=== PATIENT | female | born 1950 | race Caucasian/White ===

== ENCOUNTER 2021-05-15 11:16 | Outpatient (CLI) | payer MEDICARE, SELFPAY ==
--- NOTE | 2021-05-15 12:52 | ECG_ITS ---
Measurements Intervals Carey Rate: 73 P: 9 NH: 191 QRS: 0 QRSD: 116 T: 50 QT: 390 QTc: 431 Interpretive Statements SINUS RHYTHM INCOMPLETE RIGHT BUNDLE BRANCH BLOCK DELAYED PRECORDIAL R/S TRANSITION CONSIDER INFERIOR INFARCT, AGE INDETERMINATE BORDERLINE ST-T WAVE ABNORMALITY- ANT/HIGH LAT LEADS ABNORMAL ECG Electronically Signed On 05-15-2021 14:34:23 CDT by Curry Ortiz D.O.
[2021-05-15 13:26] LABS: Add Urine Microscopic? NO; Appearance Urine Clear (Clear); Bilirubin Urine Negative (Negative); Blood Urine Negative (Negative); Color Urine Yellow (Yellow); Glucose Urine UA Negative (Negative); Ketones Urine Negative (Negative); Leukocyte Esterase Ur Negative LEU/UL (Negative); Nitrate Urine Negative (Negative); Protein Urine Negative (Negative); Specific Grav Ur 1.013 (1.001-1.035); Urobilinogen Urine Negative mg/dL (<2.0)
[2021-05-15 13:32] LABS: INR 0.9; Prothrombin Time 12.5 Seconds (11.1-14.7)
[2021-05-15 13:33] LABS: Partial Thromboplastin Time 25.6 SECONDS (22.3-36.8)
[2021-05-15 13:39] LABS: Urine Cotinine NEGATIVE
== END 2021-05-15 11:17 | disposition home or self-care (01) ==
PROVIDERS: PCP Pediatrics; Visit Provider Orthopaedic Surgery
DX: M16.12 Unilateral primary osteoarthritis, left hip (principal); Z01.818 Encounter for other preprocedural examination; I45.10 Unspecified right bundle-branch block
CPT/HCPCS: 80307; 81003; 85610; 85730; 86850; 86900; 86901; 87081; 93005

== ENCOUNTER 2021-05-24 19:26 | Observation (INO) | payer MEDICARE, SELFPAY ==
[2021-05-15 11:48] VITALS: BMI 33.7
[2021-05-15 12:53] VITALS: BP 153/70; PULSE 80; RESP 16; TEMP 37.2; O2SAT 97
[2021-05-23] VITALS (13 sets, daily range): BP systolic 140–192; BP diastolic 8–95; PULSE 77–95; RESP 14–20; TEMP 36.1–36.6; O2SAT 94–100
--- NOTE | 2021-05-23 08:02 | WPDANESEPPF ---
Anes - Initial Pre Proc Eval Procedure: Operation Date: 05/23/21 12:00 Proposed Procedures p Left Total Hip Arthroplasty - Froylan Velez MD Date/Time: 05/23/21 08:02 Surgeon: Froylan Velez MD Pre Op Diagnosis: left hip DJD Patient Data Age: 71 Gender: F Height: 1.65 m Weight: 91.8 kg Last Vital Signs Temp 37.2 C 05/15/21 12:53 Pulse 80 05/15/21 12:53 Resp 16 05/15/21 12:53 BP 153/70 H 05/15/21 12:53 Pulse Ox 97 05/15/21 12:53 Allergies Allergy/AdvReac Type Severity Reaction Status Date / Time [id number] Reductase AdvReac Muscle Pain Verified 05/23/21 11:23 Inhibitor Home Medications Medication Instructions Recorded Confirmed Type amlodipine 5 mg tablet 5 mg PO HS 12/13/20 05/15/21 History aspirin 81 mg tablet,delayed 81 mg PO DAILY 12/13/20 05/15/21 History release buspirone 30 mg tablet 30 mg PO BID 12/13/20 05/15/21 History fenofibrate 160 mg tablet 160 mg PO DAILY 12/13/20 05/15/21 History fluticasone propionate 50 2 spray INTRANASAL DAILY 12/13/20 05/15/21 History mcg/actuation nasal spray,suspension hydrochlorothiazide 25 mg tablet 25 mg PO DAILY 12/13/20 05/15/21 History insulin glargine 100 unit/mL (3 12 unit SUBCUT QPM 12/13/20 05/15/21 History mL) subcutaneous pen levothyroxine 112 mcg capsule 112 mcg PO DAILY 12/13/20 05/15/21 History liraglutide 0.6 mg/0.1 mL (18 mg/3 1.2 mg SUBCUT DAILY 12/13/20 05/15/21 History mL) subcutaneous pen injector olmesartan 40 mg tablet 40 mg PO DAILY 12/13/20 05/15/21 History paroxetine HCl 40 mg tablet 40 mg PO DAILY 12/13/20 05/15/21 History ropinirole 2 mg tablet 2 mg PO TID 12/13/20 05/15/21 History sitagliptin 50 mg-metformin 1,000 1 tablet PO BID 12/13/20 05/15/21 History mg tablet trazodone 100 mg tablet 200 mg PO QHS PRN tablet 12/13/20 05/15/21 History naproxen 500 mg tablet 500 mg PO PRN PRN 03/02/21 05/15/21 History chlorhexidine gluconate 4 % 1 applic TOPICAL ONCE #237 ml 03/15/21 05/15/21 Rx topical liquid tramadol 50 mg tablet 50 mg PO Q6H PRN 05/10/21 05/15/21 History cetirizine [Zyrtec] 10 mg PO DAILY 05/15/21 05/15/21 History ipratropium bromide 2 spray INTRANASAL DAILY 05/15/21 05/15/21 History simethicone [Gas Relief Extra 125 mg PO BID 05/15/21 05/15/21 History Strength] Patient hx anesthesia problems: none Family hx anesthesia problems: none Results Review: All pre-operative results and documents have been reviewed as part of the pre-operative evaluation. COUNTS INCLUDE 234 BEDS AT THE [facility] Past Medical History Medical History (Updated 05/23/21 @ 08:03 by Lamont Liu DO) Diabetes Last A1C updated 01/28/20: 7.1 DVT (deep venous thrombosis) Excessive thirst Fatty liver GERD (gastroesophageal reflux disease) Hoarseness Hyperlipidemia Hypertension Hyperthyroidism PONV (postoperative nausea and vomiting) Right shoulder pain Sleep apnea Surgical History Surgical History (Updated 05/23/21 @ 08:03 by Lamont Liu DO) History of total knee replacement Family History Family History Other Diabetes mellitus Family history of cardiovascular disease Family history of malignant neoplasm Hypertension Social History Social History Additional smoking assessment comments: DENIES ANY FORM OF TOBACCO USE Alcohol intake: current Alcohol use details: Occasional Substance use: never Living arrangements: with family Gender identity (if verbalized by the patient): Female Spiritual care concerns: No Anes - Eval Final PreProcedure Day of Procedure 05/23/21 08:02 Patient weight: obese Heart: regular rate and rhythm Lungs: clear to auscultation and normal air movement Airway: Mallampati scale class II Neurological: alert and oriented Last oral intake: >/= 8 hours ASA classification: III Emergent: no Anesthetic plan: proceed Anesthesia type and monitoring: ge
[2021-05-23] MEDS: TRANEXAMIC ACID 1,000MG/ISO100 1,000 MG/100 ML BAG 200 MG IVPB (10:30)
[2021-05-23] MEDS: LACTATED RINGERS 1,000 ML 30 ML IV CONT ×2 (10:30→15:39)
[2021-05-23] MEDS: ACETAMINOPHEN 500 MG TABLET 1000 MG PO (10:30)
[2021-05-23 11:15] LABS: Glucose Point of Care 127 mg/dl (65-105)
[2021-05-23] MEDS: fentaNYL CITRATE INJ (*CRX) 100 MCG/2 ML VIAL 50 MCG IV PUSH (11:16)
[2021-05-23] MEDS: ceFAZolin 2 GM/D5W 50 ML 2 GM/50 ML BAG IVPB ×2 (12:44→20:08)
[2021-05-23] MEDS: TRANEXAMIC ACID 1,000 MG/10 ML AMPUL 1000 MG IV PUSH (14:49)
[2021-05-23] MEDS: fentaNYL CITRATE INJ (*CRX) 100 MCG/2 ML VIAL 25 MCG IV PUSH ×5 (15:51→17:16)
[2021-05-23 16:08] LABS: Glucose Point of Care 167 mg/dl (65-105)
--- NOTE | 2021-05-23 16:24 | W.PM.PROC2 ---
Procedure Note - Detailed Date of Procedure 05/23/21 Pre-op Diagnosis left hip DJD Post-op Diagnosis same Procedure Performed [facility] Surgeon Froylan Velez MD Anesthesia general Description of Procedure THE PATIENT WAS TAKEN TO THE OPERATING ROOM IN STABLE CONDITION AND WAS PLACED IN THE LATERAL DECUBITUS AND THE LEFT LOWER EXTREMITY WAS PREPPED AND DRAPED IN THE STERILE FASHION. INCISION WAS MADE IN THE POSTERIOR LATERAL SIDE OF THE HIP, DOWN TO THE FASCIA LAYER. THE FASCIA WAS INCISED. THE HIP WAS EXPOSED. THE SHORT EXTERNAL ROTATORS WERE EXPOSED. THE SCIATIC NERVE WAS IDENTIFIED. INCISION WAS MADE THROUGH THE SHORT EXTERNAL ROTATORS AND THE CAPSULE OF THE HIP JOINT. THE HIP WAS DISLOCATED. AN OSTEOTOMY WAS MADE TO THE FEMORAL NECK ABOUT 1 CM PROXIMAL TO THE LESSER TROCHANTER. THE ACETABULUM WAS EXPOSED. THERE WAS SEVERE DJD SEEN. BEGINNING WITH A 44 REAMER THE ACETABULUM WAS REAMED TO 49 MM. A 50 MM TRIAL WAS PLACED IN 35 DEG OF ABDUCTION AND ANTEVERSION WAS IN ALIGNMENT WITH THE TRANS ACETABULAR LIGAMENT. THE FIT WAS EXCELLENT. THE TRIAL WAS REMOVED. A 50 MM BIOMET G7 COMPONENT WAS THEN TAPPED IN TO PLACE IN 35 DEG OF ABDUCTION AND ANTEVERSION IN ALIGNMENT WITH THE TRANSVERSE ACETABULAR LIGAMENT. THE FIT WAS EXCELLENT. THE ACETABULAR LINER WAS PLACED AND CHECKED FOR STABILITY. NEXT THE FEMUR WAS PREPARED WITH INITIAL CANAL FINDER THEN SEQUENTIAL BROACHING WITH A TAPERLOC HIP SYSTEM, UNTIL A 9 BROACH FIT WELL IN 15 OF ANTEVERSION. A -3 HIGH OFFSET NECK WITH 36 MM HEAD TRIAL WAS PLACED. THE SHUCK TEST WAS EXCELLENT AND THE STABILITY IN FLEXION AND ROTATION WAS EXCELLENT. LEG LENGTHS WERE GROSSLY EQUAL. TRIALS WERE REMOVED. A BIOMET TAPERLOC 9 STEM WAS PLACED WITH A HIGH OFFSET NECK THE FIT WAS EXCELLENT IN 15 DEG OF ANTEVERSION. A -3 CERAMIC 36 MM FEMORAL CERAMIC HEAD WAS PLACED. THE HIP WAS TRIALED AND THE STABILITY WAS EXCELLENT WERE THE LEG LENGTHS AND THE SHUCK TEST. THE WOUND WAS IRRIGATED WITH STERILE BETADINE AND WATER FOR 3 MIN. THEN WASHED AGAIN. THE CAPSULE AND THE EXTERNAL ROTATORS WERE APPROXIMATED WITH NUMBER 1 VICRYL. THE FASCIA WITH No 2 QUIL AND THE SUB CUTANEOUS LAYER WITH 2-0 ABSORBABLE SUTURE WITH A RUNNING 3-0 SUBCUTICULAR LAYER WELL. DERMABOND WAS PLACED AND STERILE DRESSING WAS APPLIED. PATIENT WAS PLACED BACK ON TO THE SUPINE POSITION AND WAS EXTUBATED Estimated Blood Loss 100 Complications No immediate complications Condition stable Disposition PACU
[2021-05-23] MEDS: rOPINIRole HCL 1 MG TABLET 2 MG PO (18:03)
[2021-05-23] MEDS: SIMETHICONE 125 MG CHEW TAB PO (18:05)
[2021-05-23] MEDS: busPIRone HCL 10 MG TABLET 30 MG PO (18:05)
[2021-05-23] MEDS: DOCUSATE SODIUM 100 MG CAPSULE PO (18:05)
[2021-05-23] MEDS: metFORMIN HCL 500 MG TABLET 1000 MG PO (18:06)
[2021-05-23] MEDS: SODIUM CHLORIDE 0.9% IV 1,000 ML 125 ML IV CONT (18:07)
[2021-05-23] MEDS: INSULIN GLARGINE (*BKC) 100 UNITS/ML 12 UNITS SUB-Q (18:20)
[2021-05-23] MEDS: HYDROcodone/acetaminophen (*CRX) 7.5-325 MG TABLET 1 TAB PO ×2 (18:23→22:35)
[2021-05-23 18:24] LABS: Glucose Point of Care 206 mg/dl (65-105)
[2021-05-23 19:48] LABS: Glucose Point of Care 309 mg/dl (65-105)
[2021-05-23] MEDS: ENOXAPARIN 30 MG/0.3 ML SYRINGE SUB-Q (20:09)
[2021-05-23] MEDS: amLODIPine BESYLATE 5 MG TABLET PO (20:09)
[2021-05-23] MEDS: FAMOTIDINE 20 MG TABLET PO (20:09)
[2021-05-23] MEDS: traZODone HCL 50 MG TABLET 200 MG PO (20:14)
--- NOTE | 2021-05-23 22:55 | PM.IMCN ---
Assessment and Plan Assessment and plan (1) S/P total left hip arthroplasty: Code(s): Z96.642 - Presence of left artificial hip joint Status: Acute Assessment and Plan: Postop care per Ortho. Pain management per Ortho. PT OT per ortho. DVT prophylaxis per Ortho. The patient is on subcu Lovenox at this time. 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 She had been on 6 months of anticoagulation at that time. The patient plans on going home for rehab. The patient was resumed on Celebrex. (2) Diabetes: Code(s): E11.9 - Type 2 diabetes mellitus without complications Status: Chronic Assessment and Plan: Accu-Cheks AC and HS. With sliding scale insulin. Her metformin has been restarted. Continue with long-acting insulin. Continue with Januvia (3) Hypothyroidism: Code(s): E03.9 - Hypothyroidism, unspecified Status: Chronic Assessment and Plan: Continue with levothyroxine and check thyroid level. (4) Restless leg syndrome: Code(s): G25.81 - Restless legs syndrome Status: Chronic Assessment and Plan: Resume ropinirole (5) Sleep apnea: Code(s): G47.30 - Sleep apnea, unspecified Status: Chronic Assessment and Plan: Patient has brought her CPAP machine with her. (6) Hypertension: Code(s): I10 - Essential (primary) hypertension Status: Chronic Assessment and Plan: Her Norvasc and hydrochlorothiazide were resumed. (7) Hyperlipidemia: Code(s): E78.5 - Hyperlipidemia, unspecified Status: Chronic Assessment and Plan: Resume home medication a fenofibrate HPI Data of Consult Consult date: 05/23/21 Requesting Physician: Froylan Velez MD Primary Care Provider: Yaniv AvilaMD Consult Narrative Narrative: Marie Howard is a 71 year old female who has severe degenerative joint disease. The patient has pain in bilateral hips. However she has had severe pain to her left hip for quite some time. She is having difficulty sleeping in bed to the discomfort. The patient stated that she has tried conservative measures including Biofreeze, naproxen, gabapentin, physical therapy and a chiropractor without relief from the pain. The patient sleeps in the recliner because she has so much pain when she lays in the bed. The patient stated she is having difficulty moving around because of the discomfort. The patient stated that she could not perform her daily activities due to the amount of discomfort that she has with activity and with rest. The patient chose to undergo a left total hip arthroplasty per Dr. Velez today. The patient has had her left total knee performed in the past and had complications including DVTs in the past which required anticoagulation for 6 months. The patient is being admitted to observation per orthopedic physician. I thank orthopedic physician for the opportunity to consult on this pleasant lady. Review of Systems Constitutional: Constitutional: Reports as per HPI and Reports no additional constitutional complaints Eyes: Eyes: Reports as per HPI and Reports no additional eye complaints ENT: Reports system reviewed and no additional complaints, except as documented and Reports Normal hearing present Cardiovascular: Cardiovascular: Reports no additional cardiovascular complaints Respiratory: Respiratory: Reports as per HPI and Reports no additional respiratory complaints Gastrointestinal: Gastrointestinal: Reports as per HPI and Reports no additional gastrointestinal complaints Genitourinary: Genitourinary: Reports no additional female genitourinary complaints Musculoskeletal: Musculoskeletal: Reports no additional musculoskeletal complaints Integumentary/Breasts: Skin/Breast: Reports system reviewed and no additional complaints, except as docu Neurologic: Reports
[2021-05-24] VITALS (7 sets, daily range): BP systolic 133–170; BP diastolic 56–67; PULSE 85–103; RESP 16–18; TEMP 36.4–36.9; O2SAT 93–96
--- NOTE | ~2021-05-24 | XR_ITS ---
EXAMINATION: XR hip LT 1V DATE: 05/23/2021 15:53 INDICATION: Total left hip arthroplasty. Postop. TECHNIQUE: A single view of left hip was obtained. COMPARISON: Left hip radiograph 03/02/2021 FINDINGS: There is a total left hip arthroplasty in near-anatomic alignment. No fracture. There is ga s in the soft tissues, consistent with recent surgery. IMPRESSION: 1. Total left hip arthroplasty in near-anatomic alignment. Reviewed, dictated and finalized at location A.
[2021-05-24] MEDS: HYDROcodone/acetaminophen (*CRX) 7.5-325 MG TABLET 1 TAB PO ×5 (01:58→17:06)
[2021-05-24] MEDS: ceFAZolin 2 GM/D5W 50 ML 2 GM/50 ML BAG IVPB ×2 (03:56→12:42)
[2021-05-24] MEDS: WATER FOR IRRIGATION, STERILE 1,000 ML BOTTLE 1000 ML (03:59)
[2021-05-24 05:41] LABS: Basophils Percent Auto 0.3 % (0.2-1.2); Eosinophils Absolute Auto 0.1 K/mm3 (0-0.3); Eosinophils Percent Auto 0.4 % (0-4.4); Hematocrit 32.7 % (37.0-47.0); Hemoglobin 10.5 g/dL (12.0-15.0); Immature Granulocyte Absolute 0.04 K/mm3 (0.00-0.031); Immature Granulocyte Percent A 0.3 % (0-0.5); Lymphocytes Absolute Auto 1.19 K/mm3 (0.9-3.2); Lymphocytes Percent Auto 10.4 % (18.3-44.2); Mean Corpuscular HGB Conc 32.1 g/dl (32-36); Mean Corpuscular Hemoglobin 28.1 pg (26-34); Mean Corpuscular Volume 87.4 fl (80-100); Mean Platelet Volume 10.4 fl (7.4-10.4); Monocytes Percent Auto 8.7 % (2.6-8.5); Neutrophils Absolute Auto 9.2 K/mm3 (1.3-6.7); Neutrophils Percent Auto 79.9 % (45.5-73.1); Platelet Count Result 360 k/mm3 (150-375); Red Blood Count 3.74 M/mm3 (4.2-5.4); Red Cell Distribution Width 14.1 % (11.5-14.5); White Blood Count 11.5 K/mm3 (4.5-10.0)
[2021-05-24 05:50] LABS: Hemoglobin A1C 7.8 % (<5.7)
[2021-05-24 05:51] LABS: Anion Gap 11 mmol/L (8-16); Blood Urea Nitrogen 15 mg/dL (7-17); Calcium 9.3 mg/dL (8.4-10.2); Carbon Dioxide 26 mmol/L (22-30); Chloride 93 mmol/L (98-107); Estimated CRCL calculation 84 ml/min; Estimated Glomerular Filt Rate > 60; Glucose 152 mg/dL (65-110); Magnesium 1.5 mg/dL (1.6-2.3); Potassium 4.6 mmol/L (3.4-5.0); Sodium 130 mmol/L (137-145)
[2021-05-24] MEDS: LEVOTHYROXINE SODIUM 112 MCG TABLET PO (06:11)
--- NOTE | 2021-05-24 07:29 | PM.IMPN ---
Progress Note: A&P Assessment and Plan (1) S/P total left hip arthroplasty: Code(s): Z96.642 - Presence of left artificial hip joint Status: Acute Assessment and Plan: Postop care per Ortho. Pain management per Ortho. PT OT per ortho. DVT prophylaxis per Ortho. The patient is on subcu Lovenox at this time. 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 She had been on 6 months of anticoagulation at that time. The patient plans on going home for rehab. The patient was resumed on Celebrex by ortho (2) Diabetes: Code(s): E11.9 - Type 2 diabetes mellitus without complications Status: Chronic Assessment and Plan: HgbA1c 7.8%. Accu-Cheks AC and HS. With sliding scale insulin. Her metformin has been restarted. Continue with long-acting insulin. Continue with Januvia (3) Hypothyroidism: Code(s): E03.9 - Hypothyroidism, unspecified Status: Chronic Assessment and Plan: TSH elevated at 6.570, Free T4 was normal. Will Continue with levothyroxine and follow up with PCP in 6 weeks (4) Restless leg syndrome: Code(s): G25.81 - Restless legs syndrome Status: Chronic Assessment and Plan: Resume ropinirole (5) Sleep apnea: Code(s): G47.30 - Sleep apnea, unspecified Status: Chronic Assessment and Plan: Patient has brought her CPAP machine with her. (6) Hypertension: Code(s): I10 - Essential (primary) hypertension Status: Chronic Assessment and Plan: BP stable 133/62. Her Norvasc and hydrochlorothiazide were resumed. (7) Hyperlipidemia: Code(s): E78.5 - Hyperlipidemia, unspecified Status: Chronic Assessment and Plan: Resume home medication a fenofibrate (8) Hypomagnesemia: Code(s): E83.42 - Hypomagnesemia Status: Acute Assessment and Plan: Mag 1.5 this morning. Will give IV mag 3 g. Continue monitoring. Time Spent With Patient Time with patient: 25 - 35 minutes Subjective Date/time seen: 05/24/21 07:29 Interval history: Date of Service 05/24/21: She reports feeling well today other than some left hip pain. She does have to go to the bathroom in his rate to walk in there. She states she is very hungry denies any nausea, vomiting, abdominal pain. She denies any chest pain, shortness of breath, cough. He does report a dry mouth. Denies any leg swelling, calf pain, numbness, tingling, or any other symptoms at this time. Review of Systems Review of Systems: All systems reviewed & are unremarkable except as noted in HPI and below Exam Narrative: General: 71-year-old woman sitting up in the chair talking with the aid. Appears comfortable. In no acute distress. Skin: No jaundice or cyanosis. Good skin turgor. Neck: Full range of motion. Supple. Respiratory: Lungs are clear to auscultation bilaterally. No bony chest wall tenderness. Cardiovascular: The heart has a regular rate and rhythm without murmur. Lower extremities: Surgical site to left hip is intact, no signs of drainage or ecchymosis. No lower extremity edema. Distal pulses are easily palpated. No calf tenderness to palpation. Gastrointestinal: The abdomen is soft, nontender and nondistended with active bowel sounds. Psychiatric: Lucid and oriented. Memory intact. Neurologic: No focal deficits. Speech is clear. No facial drooping. Objective Data Vital Signs Vital Signs: Vital Signs - 24 hr 05/23/21 11:26 05/23/21 15:39 05/23/21 15:50 Temperature 97.2 F L 97.1 F L Pulse Rate 80 80 84 Respiratory Rate 16 20 18 Blood Pressure 159/71 H 192/83 H 178/95 H Pulse Oximetry 97 100 100 05/23/21 16:05 05/23/21 16:20 05/23/21 16:35 Temperature Pulse Rate 77 80 84 Respiratory Rate 20 18 16 Blood Pressure 171/81 H 140/89 145/84 H Pulse Oximetry 96 94 95
[2021-05-24 07:38] LABS: Free T4 Free Thyroxine Reflex 2.18 ng/dL (0.78-2.19)
--- NOTE | 2021-05-24 07:41 | WPDHPUPDATE1 ---
History and Physical Update Update Date/Time: 05/24/21 07:41 History and Physical has been reviewed, including an updated exam of the patient. There are NO changes in the patient's condition. Risks, benefits, and alternatives have been discussed and questions answered. Patient agrees to proceed with procedure.
[2021-05-24 07:55] LABS: Glucose Point of Care 183 mg/dl (65-105)
[2021-05-24] MEDS: FAMOTIDINE 20 MG TABLET PO ×2 (08:37→20:27)
[2021-05-24] MEDS: metFORMIN HCL 500 MG TABLET 1000 MG PO ×2 (08:37→17:06)
[2021-05-24] MEDS: rOPINIRole HCL 1 MG TABLET 2 MG PO ×3 (08:37→17:06)
[2021-05-24] MEDS: ASPIRIN 81 MG ENTERIC TABLET PO (08:37)
[2021-05-24] MEDS: OLMESARTAN MEDOXOMIL 20 MG TABLET 40 MG PO (08:37)
[2021-05-24] MEDS: FENOFIBRATE 160 MG TABLET PO (08:37)
[2021-05-24] MEDS: hydroCHLOROthiazide 25 MG TABLET PO (08:37)
[2021-05-24] MEDS: DOCUSATE SODIUM 100 MG CAPSULE PO ×2 (08:37→17:06)
[2021-05-24] MEDS: PARoxetine 20 MG TABLET 40 MG PO (08:37)
[2021-05-24] MEDS: CELECOXIB 200 MG CAPSULE PO (08:37)
[2021-05-24] MEDS: busPIRone HCL 10 MG TABLET 30 MG PO ×2 (08:37→17:06)
[2021-05-24] MEDS: SIMETHICONE 125 MG CHEW TAB PO ×2 (08:37→17:06)
[2021-05-24] MEDS: LORATADINE 10 MG TABLET PO (08:37)
[2021-05-24] MEDS: MAGNESIUM SULFATE 3GM/D5W100ML 3 GM/100 ML BAG IVPB (08:38)
[2021-05-24] MEDS: ENOXAPARIN 30 MG/0.3 ML SYRINGE SUB-Q ×2 (08:38→20:27)
[2021-05-24] MEDS: IPRATROPIUM NASAL SPRAY 0.03% 15 ML BOTTLE 2 SPRAY NASAL (08:38)
[2021-05-24 08:52] LABS: Total Triiodothyronine (T3) 0.86 NG/ML (0.97-1.69)
[2021-05-24 12:02] LABS: Glucose Point of Care 178 mg/dl (65-105)
--- NOTE | 2021-05-24 13:52 | WPDANESPN ---
Anes - Prog Note Post-Op Date/Time: 05/24/21 13:52 Cardiovascular status: normal Respiratory status: normal Airway patency: baseline Mental status: baseline Post-Op hydration status: normal Vital Signs: Last Vital Signs Temp 97.6 F 05/24/21 05:42 Pulse 92 05/24/21 05:42 Resp 16 05/24/21 05:42 BP 133/62 05/24/21 05:42 Pulse Ox 95 05/24/21 05:42 Pain Score (VAS): 0 I/O: Intake & Output 05/23/21 05/24/21 05/24/21 23:59 07:59 15:59 Intake Total 250 1550 360 Output Total 1400 Balance 250 150 360 Laboratory Tests 05/24/21 05:19 05/24/21 05:19 05/23/21 05/23/21 05/23/21 15:46 18:02 19:44 WBC RBC Hgb Hct MCV MCH MCHC RDW Plt Count MPV Immature Gran % (Auto) Neut % (Auto) Lymph % (Auto) Jenkins % (Auto) Eos % (Auto) Baso % (Auto) Lymph # (Auto) Jenkins # (Auto) Eos # (Auto) Baso # (Auto) Abs Immat Gran (auto) Absolute Neuts (auto) Absolute Nucleated RBC Nucleated RBC % Sodium Potassium Chloride Carbon Dioxide Anion Gap BUN Creatinine Estim Creat Clear Calc Estimated GFR Glucose POC Capillary Glucose 167 H 206 H 309 H Hemoglobin A1c Calcium Magnesium TSH (Reflex) Free T4 Total T3 05/24/21 05/24/21 05/24/21 05:19 05:19 05:19 WBC 11.5 H RBC 3.74 L Hgb 10.5 L Hct 32.7 L MCV 87.4 MCH 28.1 MCHC 32.1 RDW 14.1 Plt Count 360 MPV 10.4 Immature Gran % (Auto) 0.3 Neut % (Auto) 79.9 H Lymph % (Auto) 10.4 L Jenkins % (Auto) 8.7 H Eos % (Auto) 0.4 Baso % (Auto) 0.3 Lymph # (Auto) 1.19 Jenkins # (Auto) 1.0 H Eos # (Auto) 0.1 Baso # (Auto) 0.0 Abs Immat Gran (auto) 0.04 H Absolute Neuts (auto) 9.2 H Absolute Nucleated RBC 0.0 Nucleated RBC % 0.0 Sodium 130 L Potassium 4.6 Chloride 93 L Carbon Dioxide 26 Anion Gap 11 BUN 15 Creatinine 0.60 L Estim Creat Clear Calc 84 Estimated GFR > 60 Glucose 152 H POC Capillary Glucose Hemoglobin A1c 7.8 H Calcium 9.3 Magnesium 1.5 L TSH (Reflex) Free T4 Total T3 05/24/21 05/24/21 05/24/21 05:19 05:19 05:19 WBC RBC Hgb Hct MCV MCH MCHC RDW Plt Count MPV Immature Gran % (Auto) Neut % (Auto) Lymph % (Auto) Jenkins % (Auto) Eos % (Auto) Baso % (Auto) Lymph # (Auto) Jenkins # (Auto) Eos # (Auto) Baso # (Auto) Abs Immat Gran (auto) Absolute Neuts (auto) Absolute Nucleated RBC Nucleated RBC % Sodium Potassium Chloride Carbon Dioxide Anion Gap BUN Creatinine Estim Creat Clear Calc Estimated GFR Glucose POC Capillary Glucose Hemoglobin A1c Calcium Magnesium TSH (Reflex) 6.570 H Free T4 2.18 Total T3 0.86 L 05/24/21 05/24/21 07:46 12:01 WBC RBC Hgb Hct MCV MCH MCHC RDW Plt Count MPV Immature Gran % (Auto) Neut % (Auto) Lymph % (Auto) Jenkins % (Auto) Eos % (Auto) Baso % (Auto) Lymph # (Auto) Jenkins # (Auto) Eos # (Auto) Baso # (Auto) Abs Immat Gran (auto) Absolute Neuts (auto) Absolute Nucleated RBC Nucleated RBC % Sodium Potassium Chloride Carbon Dioxide Anion Gap BUN Creatinine Estim Creat Clear Calc Estimated GFR Glucose POC Capillary Glucose 183 H 178 H Hemoglobin A1c Calcium Magnesium TSH (Reflex) Free T4 Total T3 Post-procedural complaints: none Patient Feedback: Patient satisfied with anesthetic care.
--- NOTE | 2021-05-24 16:21 | PM.PNORT ---
Progress Note: A&P Additional Plan POD DOING WELL WITH POOR PROGRESS WITH PT AND SOME PAIN CONTROL ISSUES. SHE WILL CONTINUE WITH PT AND IMPROVED PAIN CONTROL. SHE WILL MOST LIKELY BE DISCHARGED SOME TIME TMRW IF SHE IMPROVES WITH PT. Subjective Subjective Date/Time Seen: 05/24/21 16:21 POD 1 DOING WELL. HER PAIN IS SIGNIFICANT. IMPROVING. NO CALF PAIN Exam Extrem: Other: VSS AFEBRILE DRESSING DRY NV INTACT CALF SOFT NON TENDER NEG HOMANS SIGN Objective Data Vital Signs Vital Signs: Vital Signs - 24 hr 05/23/21 16:35 05/23/21 16:50 05/23/21 17:05 Temperature Pulse Rate 84 83 82 Respiratory Rate 16 20 14 Blood Pressure 145/84 H 145/84 H 152/8 H Pulse Oximetry 95 94 94 05/23/21 17:30 05/23/21 17:40 05/23/21 17:55 Temperature 36.4 C L 36.1 C L Pulse Rate 86 85 Respiratory Rate 18 18 Blood Pressure 149/72 H 147/86 H Pulse Oximetry 99 99 98 05/23/21 18:25 05/23/21 19:07 05/24/21 00:19 Temperature 36.6 C 36.6 C 36.5 C Pulse Rate 92 95 85 Respiratory Rate 18 16 16 Blood Pressure 172/75 H 147/65 H 149/56 H Pulse Oximetry 96 94 96 05/24/21 02:30 05/24/21 05:42 05/24/21 10:00 Temperature 36.4 C 36.9 C Pulse Rate 92 92 103 H Respiratory Rate 18 16 18 Blood Pressure 133/62 154/62 H Pulse Oximetry 93 95 96 05/24/21 14:33 Temperature 36.7 C Pulse Rate 93 Respiratory Rate 18 Blood Pressure 149/67 H Pulse Oximetry 94 Intake/Output Intake/Output: Intake & Output 05/21/21 05/22/21 05/23/21 05/24/21 23:59 23:59 23:59 23:59 Intake Total 400 1910 Output Total 1400 Balance 400 510 Meds/Results Medications: Active Medications Generic Name Dose Route Start Last Admin Trade Name Freq PRN Reason Stop Dose Admin Acetaminophen 650 mg 05/23/21 17:22 Acetaminophen 325 Mg Tablet PO Q6H PRN Mild Pain (1-3) or Fever Hydrocodone Bitart/Acetaminophen 1 tab 05/23/21 17:22 05/24/21 12:41 Hydrocodone/Acetaminophen (*Crx) 7.5-325 Mg Tablet PO 1 tab Q3H PRN Administration Pain Rated 4-6 Al Hydrox/Mg Hydrox/Simethicone 30 ml 05/23/21 17:22 Mag Hydrox/Al Hydrox/Simeth 30 Ml Udc PO Q6H PRN Indigestion Amlodipine Besylate 5 mg 05/23/21 21:00 05/23/21 20:09 Amlodipine Besylate 5 Mg Tablet PO 5 mg HS MATILDE Administration Aspirin 81 mg 05/24/21 09:00 05/24/21 08:37 Aspirin 81 Mg Enteric Tablet PO 81 mg DAILY MATILDE Administration Buspirone HCl 30 mg 05/23/21 17:22 05/24/21 08:37 Buspirone Hcl 10 Mg Tablet PO 30 mg BID MATILDE Administration Celecoxib 200 mg 05/24/21 09:00 05/24/21 08:37 Celecoxib 200 Mg Capsule PO 200 mg DAILY MATILDE Administration Dextrose 12.5 gm 05/23/21 22:54 Dextrose 50% 25 Gm/50 Ml Syringe IV PUSH PRN PRN Hypoglycemia Protocol Diazepam 5 mg 05/23/21 17:22 Diazepam (*Crx) 5 Mg Tablet PO Q6H PRN Anxiety/Muscle Spasm Docusate Sodium 100 mg 05/23/21 17:22 05/24/21 08:37 Docusate Sodium 100 Mg Capsule PO 100 mg BID MATILDE Administration Enoxaparin Sodium 30 mg 05/23/21 21:00 05/24/21 08:38 Enoxaparin 30 Mg/0.3 Ml Syringe SUB-Q 30 mg Q12HR MATILDE Administration Famotidine 20 mg 05/23/21 21:00 05/24/21 08:37 Famotidine 20 Mg Tablet PO 20 mg Q12HR MATILDE Administration Fenofibrate 160 mg 05/24/21 09:00 05/24/21 08:37 Fenofibrate 160 Mg Tablet PO 160 mg DAILY MATILDE Administration Glucagon 1 mg 05/23/21 22:54 Glucagon For Inj 1 Mg Vial IM PRN PRN Hypoglycemia Protocol Glucose 15 gm 05/23/21 22:54 Glucose Oral Gel 15 Gm Of Glucse In 37.5 Gm Tube PO PRN PRN Hypoglycemia Protocol Hydrochlorothiazide 25 mg 05/24/21 09:00 05/24/21 08:37 Hydrochlorothiazide 25 Mg Tablet PO 25 mg DAILY MATILDE Administration Hydroxyzine HCl 50 mg 05/23/21 17:22 Hydroxyzine Hcl 25 Mg Tablet PO Q4H PRN Itching Dextrose 1,000 mls @ 100 mls/hr 05/23/21 22:54 Dextrose 5% 1,00
[2021-05-24 16:38] LABS: Glucose Point of Care 210 mg/dl (65-105)
[2021-05-24] MEDS: INSULIN GLARGINE (*BKC) 100 UNITS/ML 12 UNITS SUB-Q (17:07)
[2021-05-24] MEDS: INSULIN ASPART (*BKC) 100 UNITS/ML SUB-Q (17:07)
[2021-05-24] MEDS: amLODIPine BESYLATE 5 MG TABLET PO (20:27)
[2021-05-24] MEDS: ONDANSETRON INJ 4 MG/2 ML VIAL IV PUSH (20:32)
[2021-05-24] MEDS: MORPHINE SULFATE (*CRX) 4 MG/ML INJ 3 MG IV PUSH (20:38)
[2021-05-25 01:40] VITALS: PULSE 91; O2SAT 94
[2021-05-25 03:12] VITALS: BP 152/61; PULSE 86; RESP 17; TEMP 35.9; O2SAT 97
[2021-05-25 03:18] LABS: Glucose Point of Care 244 mg/dl (65-105)
[2021-05-25 03:24] VITALS: PULSE 81; O2SAT 95
[2021-05-25] MEDS: HYDROcodone/acetaminophen (*CRX) 7.5-325 MG TABLET 1 TAB PO ×3 (03:25→12:01)
[2021-05-25] MEDS: LEVOTHYROXINE SODIUM 112 MCG TABLET PO (03:26)
[2021-05-25 05:30] LABS: Anion Gap 5 mmol/L (8-16); Blood Urea Nitrogen 10 mg/dL (7-17); Calcium 8.6 mg/dL (8.4-10.2); Carbon Dioxide 30 mmol/L (22-30); Chloride 90 mmol/L (98-107); Estimated CRCL calculation 84 ml/min; Estimated Glomerular Filt Rate > 60; Glucose 245 mg/dL (65-110); Magnesium 1.8 mg/dL (1.6-2.3); Potassium 3.6 mmol/L (3.4-5.0); Sodium 125 mmol/L (137-145)
[2021-05-25 07:53] LABS: Glucose Point of Care 195 mg/dl (65-105)
[2021-05-25] MEDS: CELECOXIB 200 MG CAPSULE PO (08:34)
[2021-05-25] MEDS: FENOFIBRATE 160 MG TABLET PO (08:34)
[2021-05-25] MEDS: FAMOTIDINE 20 MG TABLET PO (08:34)
[2021-05-25] MEDS: PARoxetine 20 MG TABLET 40 MG PO (08:35)
[2021-05-25] MEDS: busPIRone HCL 10 MG TABLET 30 MG PO (08:35)
[2021-05-25] MEDS: OLMESARTAN MEDOXOMIL 20 MG TABLET 40 MG PO (08:35)
[2021-05-25] MEDS: LORATADINE 10 MG TABLET PO (08:35)
[2021-05-25] MEDS: SIMETHICONE 125 MG CHEW TAB PO (08:35)
[2021-05-25] MEDS: ASPIRIN 81 MG ENTERIC TABLET PO (08:35)
[2021-05-25] MEDS: metFORMIN HCL 500 MG TABLET 1000 MG PO (08:35)
[2021-05-25] MEDS: rOPINIRole HCL 1 MG TABLET 2 MG PO ×2 (08:35→12:01)
[2021-05-25] MEDS: DOCUSATE SODIUM 100 MG CAPSULE PO (08:35)
[2021-05-25] MEDS: ENOXAPARIN 30 MG/0.3 ML SYRINGE SUB-Q (08:39)
[2021-05-25] MEDS: IPRATROPIUM NASAL SPRAY 0.03% 15 ML BOTTLE 2 SPRAY NASAL (08:39)
--- NOTE | 2021-05-25 09:29 | PM.PNORT ---
Progress Note: A&P Assessment and Plan (1) S/P total hip arthroplasty: Qualifiers: Laterality: left Qualified Code(s): Z96.642 - Presence of left artificial hip joint Code(s): Z96.649 - Presence of unspecified artificial hip joint Status: Acute Assessment and Plan: POD #2: LEFT LAILA Continue PT/OT. WBAT. Walker. HIGH FALL RISK. Continue pain control. Ice lateral hip. Monitor dressing. Change prior to d/c. Send with one additional dressing to be changed in 5 days by home health RN. DVT prophylaxis. Plan to d/c home on Xarelto. SCDs. Incentive Spirometry. Dispo: Home with Home Health pending progress with PT/OT Subjective Subjective Date/Time Seen: 05/25/21 0840 Post Op day: 2 Principal diagnosis: Left Hip DJD Interval history: POD #2: Left LAILA No new complaints. Feeling better. Ready to be discharged home today. Review of Systems Review of Systems: All systems reviewed & are unremarkable except as noted in HPI and below Constitutional: Constitutional: Denies chills, Denies fever(s), Denies headache(s), Denies lethargy and Reports weakness ENT: Denies headache(s) Cardiovascular: Cardiovascular: Denies chest pain, Denies diaphoresis, Denies lightheadedness, Denies palpitations, Denies dyspnea and Denies dyspnea on exertion Respiratory: Respiratory: Denies cough, Denies dyspnea and Denies dyspnea on exertion Gastrointestinal: Gastrointestinal: Denies constipation, Denies diarrhea, Denies nausea and Denies vomiting Genitourinary: Genitourinary: Reports urinary frequency, Denies dysuria and Denies urinary hesitancy Musculoskeletal: Musculoskeletal: Reports as per HPI, Reports joint swelling (Left Hip ) and Reports limited range of motion (Left Hip due to recent surgery ) Neurologic: Denies headache(s) and Reports weakness Endocrine: Endocrine: Denies palpitations Exam Const: General: comfortable and no acute distress Resp: Effort & Inspection: normal respiratory effort Cardio: Rate: regular rate Rhythm: regular rhythm GI: Inspection: non-distended Skin: General skin exam: normal color Wounds: wounds noted (incision left hip C/D/I ) Extrem: Right lower extremity: normal to inspection, full ROM and normal capillary refill Left lower extremity: hip/thigh Details: tenderness Location: of the hip Location: laterally and anteriorly, swelling (thigh soft ) Location: of the hip (lateral. ), abnormal ROM (limitations with internal/external rotation and flexion/extension due to recent surgical intervention ) and other (incision lateral hip c/d/i. ), knee Details: normal to inspection and normal ROM; no tenderness and no swelling, lower leg (Negative Jordan's Sign ) Details: no edema, ankle (+ankle dorsiflexion/plantarflexion ) Details: normal to inspection, no edema and normal ROM; no tenderness, no swelling and no warmth and foot Details: normal capillary refill, toes with normal ROM, vascular exam Details: dorsalis pedis pulse present and motor-sensory exam light-touch normal in all toes; no tenderness, no ecchymosis and no crepitus Psych: Mental Status: mental status grossly normal Affect: normal affect Objective Data Vital Signs Vital Signs: Vital Signs - 24 hr 05/24/21 10:00 05/24/21 14:33 05/24/21 19:25 Temperature 36.9 C 36.7 C 36.6 C Pulse Rate 103 H 93 94 Respiratory Rate 18 18 18 Blood Pressure 154/62 H 149/67 H 170/67 H Pulse Oximetry 96 94 95 05/24/21 20:00 05/25/21 01:40 05/25/21 03:12 Temperature 35.9 C L Pulse Rate 94 91 86 Respiratory Rate 18 17 Blood Pressure 152/61 H Pulse Oximetry 95 94 97 05/25/21 03:24 Temperature Pulse Rate 81 Respiratory Rate Blood Pressure Pulse Oximetry 95 Intake/Output Intake/Output: Intake & Output 05/22/21 05/23/21 05/24/21 05/25/21 23:59 23:59 23:59 23:59 Intake Total 400 4410 800 Output Total 2600 2300 Balance 400 1810 -1500 Meds/Results Medications: Active Medications Generic Nam
--- NOTE | 2021-05-25 10:29 | PM.IMPN ---
Progress Note: A&P Assessment and Plan (1) S/P total left hip arthroplasty: Code(s): Z96.642 - Presence of left artificial hip joint Status: Acute Assessment and Plan: Postop care per Ortho. Pain management per Ortho. PT OT per ortho. DVT prophylaxis per Ortho. The patient plans on going home with HH. (2) Diabetes: Code(s): E11.9 - Type 2 diabetes mellitus without complications Status: Chronic Assessment and Plan: HgbA1c 7.8%. Accu-Cheks AC and HS. With sliding scale insulin. Continue home medications (3) Hypothyroidism: Code(s): E03.9 - Hypothyroidism, unspecified Status: Chronic Assessment and Plan: TSH elevated at 6.570, Free T4 was normal. Will Continue with levothyroxine and follow up with PCP in 6 weeks (4) Restless leg syndrome: Code(s): G25.81 - Restless legs syndrome Status: Chronic Assessment and Plan: Resume ropinirole (5) Sleep apnea: Code(s): G47.30 - Sleep apnea, unspecified Status: Chronic Assessment and Plan: Patient has brought her CPAP machine with her. (6) Hypertension: Code(s): I10 - Essential (primary) hypertension Status: Chronic Assessment and Plan: BP stable 152/61. Her Norvasc was resumed. *Held her HCTZ today due to hyponatremia. (7) Hyperlipidemia: Code(s): E78.5 - Hyperlipidemia, unspecified Status: Chronic Assessment and Plan: Resume home medication a fenofibrate (8) Hypomagnesemia: Code(s): E83.42 - Hypomagnesemia Status: Acute Assessment and Plan: Mag 1.8. Stable. (9) Hyponatremia: Code(s): E87.1 - Hypo-osmolality and hyponatremia Status: Acute Assessment and Plan: Found to have hyponatremia, most likely chronic secondary to SSRI and HCTZ use. Na dropped from 130 to 125 this morning. I held her HCTZ today. Told her to monitor BP and will recheck BMP in 1 week and follow up with PCP with low sodium levels Time Spent With Patient Time with patient: 25 - 35 minutes Subjective Date/time seen: 05/25/21 10:29 Interval history: Date of Service 05/25/21: She reports feeling well today other than some left hip pain since she just worked with PT doing stairs. She feels comfortable going home with Home Health today. Denies any nausea, vomiting, abdominal pain. She denies any chest pain, shortness of breath, cough. She does report some left leg swelling which is her surgical hip. Denies calf pain. She states at home she wears compression stockings. Denies any other symptoms at this time. Review of Systems Review of Systems: All systems reviewed & are unremarkable except as noted in HPI and below Exam Narrative: General: 71-year-old woman sitting up bed resting. Appears comfortable. In no acute distress. Skin: No jaundice or cyanosis. Good skin turgor. Neck: Full range of motion. Supple. Respiratory: Lungs are clear to auscultation bilaterally. No bony chest wall tenderness. Cardiovascular: The heart has a regular rate and rhythm without murmur. Lower extremities: Some noted left leg swelling more than right, but no pitting edema. No lower extremity edema. Distal pulses are easily palpated. No calf tenderness to palpation. Gastrointestinal: The abdomen is soft, nontender and nondistended with active bowel sounds. Psychiatric: Lucid and oriented. Memory intact. Neurologic: No focal deficits. Speech is clear. No facial drooping. Objective Data Vital Signs Vital Signs: Vital Signs - 24 hr 05/24/21 14:33 05/24/21 19:25 05/24/21 20:00 Temperature 98.0 F 97.8 F Pulse Rate 93 94 94 Respiratory Rate 18 18 18 Blood Pressure 149/67 H 170/67 H Pulse Oximetry 94 95 95 05/25/21 01:40 05/25/21 03:12 05/25/21 03:24 Temperature 96.7 F L Pulse Rate 91 86 81 Respiratory Rate 17 Blood Pressure 152/61 H Pulse Oximetry 94 97 95 Intake/O
[2021-05-25 11:58] LABS: Glucose Point of Care 223 mg/dl (65-105)
[2021-05-25] MEDS: INSULIN ASPART (*BKC) 100 UNITS/ML SUB-Q (12:02)
--- NOTE | 2021-05-25 13:04 | PCPTNOTE ---
Attempted to see patient for PT this afternoon, however patient declined due to anticipated discharge.
--- NOTE | 2021-05-25 15:27 | PM.DS ---
DS: Admitting Diagnosis Discharge Date 05/25/21 Admitting Diagnosis Left LAILA DS: Discharge Diagnosis Discharge Diagnosis (1) S/P total hip arthroplasty: Qualifiers: Laterality: left Qualified Code(s): Z96.642 - Presence of left artificial hip joint Code(s): Z96.649 - Presence of unspecified artificial hip joint Status: Acute Assessment and Plan: POD #2: LEFT LAILA Continue PT/OT. WBAT. Walker. HIGH FALL RISK. Continue pain control. Ice lateral hip. Monitor dressing. Change prior to d/c. Send with one additional dressing to be changed in 5 days by home health RN. DVT prophylaxis. Plan to d/c home on Xarelto. SCDs. Incentive Spirometry. Dispo: Home with Home Health pending progress with PT/OT DS: Summary Hospital Course Reason for hospitalization: Left total hip arthroplasty Hospital Course: 71-year-old female admitted status post left total hip arthroplasty for postoperative medical management, pain control and mobilization with physical and occupational therapy. Patient progressed slowly on postop day 1 in regards to both pain and physical/occupation therapy. Her pain and ability to participate with physical therapy improved on postop day 2. She was able perform stair climbing. She has been cleared by Physical and Occupational therapy and deemed safe to be discharged home with home health. She will follow up in 3 weeks in outpatient orthopedic clinic. Status at Discharge Functional status at discharge: uses cane/walker Overall status at discharge: patient is progressing back to baseline Time Spent with Patient Time attestation: Total time spent providing and/or coordinating discharge services: DS: Data Data Completed and Pending Labs on day of discharge: Labs from last 24 hours 05/25/21 05/25/21 05/25/21 11:51 07:43 04:35 Sodium 125 L Potassium 3.6 Chloride 90 L Carbon Dioxide 30 Anion Gap 5 L BUN 10 D Creatinine 0.60 L Estim Creat Clear Calc 84 Estimated GFR > 60 Glucose 245 H POC Capillary Glucose 223 H 195 H Calcium 8.6 Magnesium 1.8 05/24/21 05/24/21 20:26 16:33 Sodium Potassium Chloride Carbon Dioxide Anion Gap BUN Creatinine Estim Creat Clear Calc Estimated GFR Glucose POC Capillary Glucose 244 H 210 H Calcium Magnesium Discharge Plan Discharge Attending physician on discharge: Froylan Velez Consulting providers: Alyssa Cordova ; Wayne Morales Discharging Clinician: Daphney Thornton Anticipated Discharge Date/Time: 05/25/21 08:21 Patient Disposition: Home Health Service Activity: may shower, no driving and follow weight bearing status Diet: as tolerated Wound Care Instructions: follow printed instructions Discharge Instructions: Per Care Coordination, pt. will discharge home with [facility] for continued PT/OT. Please have pt.'s RN fax discharge instructions to . Post Op Total Hip Replacement Instructions Dr. Froylan Velez [phone] ? Your dressing will be changed prior to your discharge. You will be sent home with one additional dressing to be changed in 5 days by the home health RN. Your incision was closed with dermabond, allow the dermabond to fall off naturally and do not disrupt incision healing. ? You may shower with your dressing but do not submerge in a bath tub. ? Do not drive or operate machinery until you are released by Dr. Velez. ? Do not walk without a walker for any reason until you are released by Dr. Vleez. ? Continue to apply ice to the hip intermittently for additional pain relief. Protect your skin with a towel or pillow case. ? Continue to follow strict total hip replacement precautions. ? Your follow up appointment is indicated in your discharge instructions. ? Your medications have been sent to your pharmacy
== END 2021-05-25 13:48 | disposition home health service (06) ==
LOC: ANHSURGERY 19:37 → ANH2MED 19:37
PROVIDERS: Nurse Practitioner; Physician Assistant; Admitting Provider Orthopaedic Surgery; PCP Pediatrics; Visit Provider Orthopaedic Surgery
PROC: (CPT 27130; principal; 2021-05-23 12:00)
DX: M16.12 Unilateral primary osteoarthritis, left hip (principal); E11.9 Type 2 diabetes mellitus without complications; E03.9 Hypothyroidism, unspecified; E83.42 Hypomagnesemia; E78.5 Hyperlipidemia, unspecified; E87.1 Hypo-osmolality and hyponatremia; G25.81 Restless legs syndrome; G47.30 Sleep apnea, unspecified; I10 Essential (primary) hypertension; Z86.718 Personal history of other venous thrombosis and embolism; Z79.84 Long term (current) use of oral hypoglycemic drugs; Z79.4 Long term (current) use of insulin; Z96.652 Presence of left artificial knee joint
CPT/HCPCS: 27130; 36415; 73501; 80048; 80307; 81003; 82948; 83036; 83735; 84439; 84443; 84480; 85025; 85610; 85730; 86850; 86900; 86901; 87081; 93005; 97110; 97116; 97161; 97165; 97530; 97535; A9270; C1776; G0378; J0171; J0330; J0690; J1100; J1170; J1650; J1815; J2250; J2270; J2405; J2704; J2710; J2795; J3010; J3475; J7030; J7120